=== PATIENT | male | born 1970 | race Two or more races ===

== ENCOUNTER 2019-06-21 22:11 | Emergency (ER) | payer SELFPAY ==
[~2019-06-21] VITALS: Ht 175.3 cm; Wt 119.9 kg
--- NOTE | 2019-06-21 23:11 | NUR ---
Patient ambulated with two backpacks into room. Patient is alert, oriented and answers questions clearly. Patient's focused on some significant social issues including recently homeless. Patient reports having a known gastorintestinal issue where he had been seen in a [place] hospital and prescribed antibiotics but was unable to fill prescription due to cost. Patient reports having mucousy stool on bus ride from [place], [place] to [place], [place]. Patient attached to blood pressure cuff and pulsatile oxygen sensor, all vital signs within normal limits. Awaiting assessment by provider and orders.
[2019-06-22 00:07] LABS: BASOPHILS # (AUTO) 0.03 x10^3/uL (0-0.1); BASOPHILS % (AUTO) 0 % (0-1); EOSINOPHILS # (AUTO) 0.26 x10^3/uL (0-0.4); EOSINOPHILS % (AUTO) 3 % (1-7); LYMPHOCYTES % (AUTO) 25 % (22-44); MD NO; MEAN CORPUSCULAR HEMOGLOBIN 29.7 pg (27.5-34.5); MEAN CORPUSCULAR HGB CONC 32.7 g/dL (33.2-36.2); MEAN CORPUSCULAR VOLUME 90.8 fL (81-97); MEAN PLATELET VOLUME 8.9 fL (7.4-10.4); MONOCYTES # (AUTO) 0.56 x10^3/uL (0.2-0.8); MONOCYTES % (AUTO) 7 % (2-9); NEUTROPHILS # (AUTO) 5.22 x10^3/uL (1.8-6.8); NEUTROPHILS % (AUTO) 65 % (42-75); PLATELET COUNT 249 x10^3/uL (130-400); RED BLOOD COUNT 4.46 x10^6/uL (4.38-5.82); RED CELL DISTRIBUTION WIDTH 13.1 % (9.4-14.8)
[2019-06-22 00:18] LABS: ALANINE AMINOTRANSFERASE 72 U/L (12-78); ALBUMIN 3.4 g/dL (3.4-5.0); ANION GAP 6 mmol/L (5-15); CALCIUM 8.4 mg/dL (8.5-10.1); CHLORIDE 110 mmol/L (98-107)
--- NOTE | 2019-06-22 00:18 | NUR ---
RN to bedside, informed of new order for a urine sample. Patient disagreeable, refusing to even attempt.
[2019-06-22 00:20] LABS: ALKALINE PHOSPHATASE 81 U/L (45-117); BILIRUBIN,TOTAL 0.4 mg/dL (0.2-1.0); SALICYLATE LEVEL < 1.7 mg/dL (2.8-20.0); TOTAL PROTEIN 6.7 g/dL (6.4-8.2)
[2019-06-22 02:26] VITALS: BP 140/80
--- NOTE | 2019-06-22 02:26 | NUR ---
Midlevel provider to bedside, encouraged patient to provide urine sample (already asked by break RN for third time) Patient provided, RN collected and sent. Patient was informed he could take his home medications. Patient provided with water.
[2019-06-22 02:59] LABS: AMPHETAMINE SCREEN, URINE Negative (Negative); BARBITURATE SCREEN, URINE Negative (Negative)
[2019-06-22 03:00] LABS: BENZODIAZEPINE SCREEN, URINE Negative (Negative); CANNABINOID SCREEN, URINE Negative (Negative); COCAINE SCREEN, URINE Positive (Negative); METHADONE SCREEN, URINE Negative (Negative); OPIATE SCREEN, URINE Negative (Negative)
--- NOTE | 2019-06-22 03:38 | NUR ---
TP RN: TELEPSYCH CONSULT INITIATED.
--- NOTE | 2019-06-22 03:55 | NUR ---
REPORT FROM ELINA LENNON. PLAN OF CARE DISCUSSED. PATIENT CURRENTLY MAKING SI/HI STATEMENTS "I'M SUICIDAL, I JUST WANT TO KILL MYSLEF", WHEN ASKED IF PATIENT HAS A PLAN, PATIENT STATES "I WANT TO BREAK IN TO SOMEONE'S HOUSE, STEAL A WEAPON, KILL OTHER PEOPLE THEN HAVE THE OPLICE KILL ME". TELEPSYCH [id number] SET UP IN ROOM. SITTER AT DOOR
[2019-06-22] MEDS ORDERED: TICA90TA PO (03:58)
[2019-06-22] MEDS ORDERED: QUET300T5 PO (03:58)
[2019-06-22] MEDS ORDERED: ASPI-496 PO (04:04)
[2019-06-22] MEDS ORDERED: LISI5TAB7 PO (04:05)
[2019-06-22] MEDS ORDERED: METO25TA91 PO (04:06)
[2019-06-22] MEDS ORDERED: ATOR-2 PO (04:06)
--- NOTE | 2019-06-22 04:16 | NUR ---
ALL BELONGINGS BAGGED, LABELED AND PLACED IN LOCKED STORAGE. THREE PERSONAL BELONGINGS BAGS AND TWO BLACK BACKPACKS OF PATIENT'S COLLECTED.
--- NOTE | 2019-06-22 04:44 | NUR ---
PATIENT PROVIDED WITH SANDWICH, CHIPS, AND WATER. PATIENT CALM AND COOPERATIVE AT THIS TIME. SITTER AT DOOR
--- NOTE | 2019-06-22 05:02 | NUR ---
REPORT GIVEN TO DR. BEAVERS, PSYCHIATRIST. DR. BEAVERS TO EVALUATE PAIENT VIA TELEPSYCH
--- NOTE | 2019-06-22 05:52 | NUR ---
PATIENT TO BE DISCHARGED. PATIENT BELONGINGS GIVEN BACK TO PATIENT
--- NOTE | 2019-06-22 05:55 | NUR ---
PATIENT AMBULATORY WITH STEADY GAIT TO DISCHARGE. VERBALIZED INSTRUCTIONS FO DISCHARGE PAPERWORK
--- NOTE | 2019-06-22 06:07 | NUR ---
PATIENT REPEATEDLY CALLING PHONE FROM LOBBY ASKING FOR SECOND TAXI VOUCHER. PATIENT DISCHARGED WITH ONE. SECURITY CALLED TO ESCORT PATIENT OUT OF LOBBY
== END 2019-06-22 05:56 | disposition home or self-care (01) ==
LOC: ED 06-22 05:33
DX: F20.9 Schizophrenia, unspecified (principal); R10.9 Unspecified abdominal pain; I10 Essential (primary) hypertension; F14.10 Cocaine abuse, uncomplicated; F43.12 Post-traumatic stress disorder, chronic; Z72.9 Problem related to lifestyle, unspecified
CPT/HCPCS: 36415; 80053; 80307; 85025; 99284